=== PATIENT | male | born 1935 | race Caucasian/White ===

== ENCOUNTER 2022-04-04 09:39 | Inpatient (IN) | payer BC ==
[~2022-04-04] VITALS: Ht 167.6 cm; Wt 67.6 kg
[2022-04-04 09:43] VITALS: BP_SYST 116
--- NOTE | 2022-04-04 09:45 | NUR ---
Placed in room 02 . Placed on hall monitor, blood pressure machine and pulse oximeter. To gown for exam. Side rails up.
--- NOTE | 2022-04-04 09:55 | NUR ---
Pt brought by self, A&Ox4, pt presents to ER with syncope episode and tachycardia, per EMS new onset A-fib, skin pink and warm, respirations even and unlabored, cap refill <3, will cont to monitor.
--- NOTE | 2022-04-04 10:00 | NUR ---
Dr Smith evaluating patient at bedside
[2022-04-04 10:28] LABS: BASOPHILS # (AUTO) 0.1 K/uL (0.0-0.2); BASOPHILS % (AUTO) 0.3 % (0.0-2.0); EOSINOPHILS # (AUTO) 0.1 K/uL (0.0-0.4); EOSINOPHILS % (AUTO) 0.4 % (0.0-4.0); HEMATOCRIT 27.9 % (36-54); HEMOGLOBIN 9.4 g/dL (14.0-18.0); LYMPHOCYTES # (AUTO) 5.9 K/uL (1.0-5.5); MEAN CORPUSCULAR HEMOGLOBIN 32 pg (27-31); MEAN CORPUSCULAR HGB CONC 34 % (32-36); MEAN CORPUSCULAR VOLUME 95 fL (79.0-98.0); MONOCYTES # (AUTO) 0.7 K/uL (0.0-1.0); MONOCYTES % (AUTO) 3.9 % (1.7-9.3); NEUTROPHILS # (AUTO) 11.1 K/uL (1.8-7.7); NEUTROPHILS % (AUTO) 62.4 % (40.0-70.0); PLATELET COUNT (AUTO) 224 K/uL (130-430); RED BLOOD CELL COUNT(AUTO) 2.93 MIL/uL (4.2-6.2); RED CELL DISTRIBUTION WIDTH 13.8 % (9.0-15.0); WHITE BLOOD COUNT (AUTO) 17.7 K/uL (4.8-10.8)
--- NOTE | 2022-04-04 10:58 | NUR ---
Pt O2 is 83% at this time, pt placed on 2l NC, O2 96%
[2022-04-04 11:05] LABS: ALANINE AMINOTRANSFERASE 18 U/L (12-78); ASPARTATE AMINOTRANSFERASE 18 U/L (10-37); CALCIUM 8.1 mg/dL (8.4-11.0); CREATININE 1.89 mg/dL (0.55-1.30); GLUCOSE 182 mg/dL (70-99); TOTAL BILIRUBIN 0.4 mg/dL (0.0-1.0); UREA NITROGEN, BLOOD 98 mg/dL (8-21)
--- NOTE | 2022-04-04 11:12 | NUR ---
Pt placed in the comode at this time
[2022-04-04] MEDS ORDERED: cefTRIAXone 1 GM IVPB PREMIX 50 ML IV ONE (11:15)
[2022-04-04] MEDS ORDERED: PANTOPRAZOLE SODIUM 40 MG in NS 50 ML IV ONE (11:15)
[2022-04-04] MEDS ORDERED: NACL 0.9% 2,000 ML IV ONE (11:15)
[2022-04-04 11:19] LABS: ANION GAP 18 (5-15); CHLORIDE 106 mmol/L (98-107); POTASSIUM 5.4 mmol/L (3.5-5.1); SODIUM SERUM 142 mmol/L (136-145)
--- NOTE | 2022-04-04 11:30 | NUR ---
Black tarry stool noted at this time, notified.
--- NOTE | 2022-04-04 11:48 | NUR ---
urine sent to lab.
[2022-04-04] MEDS ORDERED: ALLO100T PO (11:56)
[2022-04-04] MEDS ORDERED: CELE400C PO (11:56)
[2022-04-04 12:03] LABS: BILIRUBIN,URINE NEGATIVE (NEGATIVE); BLOOD, URINE NEGATIVE (NEGATIVE); CLARITY/URINE CLEAR (CLEAR); COLOR,URINE YELLOW (YELLOW); GLUCOSE,URINE NEGATIVE (NEGATIVE); KETONES,URINE NEGATIVE (NEGATIVE); LEUKOCYTE ESTERASE ,URINE NEGATIVE (NEGATIVE); NITRITE, URINE NEGATIVE (NEGATIVE); PH,URINE 5.5 (5.0-8.0); PROTEIN URINE NEGATIVE (NEGATIVE); UROBILINOGEN,URINE 0.2 (0.2-1.0)
--- NOTE | 2022-04-04 12:17 | NUR ---
Medication reconciliation completed with information provided by patient. Any prior medication reconciliation on file was reviewed and corrected.
--- NOTE | 2022-04-04 14:03 | NUR ---
Admit bed requested Patient will be admitted to care of . Admitted to TELEMETRY unit. Diagnosis GI BLEED Inpatient (Yes or No) YES Observation (Yes or No) N Orientation concerns or request close to nursing station (Yes or No) N Covid Status NEG On vent or bipap NO Isolation requirements NO Needs a sitter N From Home (Yes or if No enter name of facility) HOME Requires Dialysis (Yes or No) N Med Rec Completed (Yes of No) YES
[2022-04-04 15:29] VITALS: BP_SYST 108
--- NOTE | 2022-04-04 15:30 | NUR ---
Patient will be admitted to care of Dr Kraus . Admitted to Tele unit. Will go to room 123A. Belongings list completed. Complete and up to date summary report printed. SBAR report to be given at bedside with opportunity for questions.
--- NOTE | 2022-04-04 15:35 | NUR ---
Initial Noted Patient admitted to Tele unit via gurney. No s/s of distress noted. Breathing is even and nonlabored. No SOB. Patient denies any pain at this time. Patient has been oriented to the room. Patient is AOX4. Report was given at bedside. Vital signs obtained, as documented. Safety precautions in place and call light within reach. AT this time patient is NPO. Family at bedside.
[2022-04-04 16:00] VITALS: BP_SYST 108
--- NOTE | 2022-04-04 16:43 | NUR ---
CONSULT: Tanvir GREENWOOD COVERING FOR DR WANG [phone] S/W: MACK
--- NOTE | 2022-04-04 18:55 | NUR ---
Closing Notes Patient is now on a clear liquid diet, no reds. Patient to be NPO at midnight. EGD for tomorrow, consents to be signed. WILL Endorse to incoming nurse. Patient is eating dinner. No s/s of distress noted. Denies any abdominal/ general pain. Patient's breathing is even and nonlabored. Safety precautions in place and call light within reach.
[2022-04-04] MEDS ORDERED: PANTOPRAZOLE SODIUM 40 MG/VIAL (PROTONIX) ONE (19:55)
[2022-04-04] MEDS: PANTOPRAZOLE SODIUM 40 MG/VIAL (PROTONIX) IVP SCH (19:58)
[2022-04-04 20:00] VITALS: BP_SYST 117
--- NOTE | 2022-04-04 21:23 | NUR ---
Patient in bed. No acute distress noted. Consent for the EGD signed and placed in the chart. Will continue to monitor.
[2022-04-04] MEDS ORDERED: traZODone HCL 50 MG TABLET (DESYREL) PO PRN (23:00)
[2022-04-05] VITALS: BP_SYST 119
--- NOTE | 2022-04-05 05:50 | NUR ---
Patient c/o discomfort to the chest, Vitals 104/72 66 97% 98.3. Patient states, " I didn't get any sleep." No distress noted. Will continue to monitor. Prn offered, patient refused.
[2022-04-05 06:48] LABS: BASOPHILS # (AUTO) 0.1 K/uL (0.0-0.2); BASOPHILS % (AUTO) 0.7 % (0.0-2.0); EOSINOPHILS # (AUTO) 0.1 K/uL (0.0-0.4); EOSINOPHILS % (AUTO) 1.5 % (0.0-4.0); HEMATOCRIT 23.5 % (36-54); HEMOGLOBIN 7.9 g/dL (14.0-18.0); LYMPHOCYTES # (AUTO) 2.2 K/uL (1.0-5.5); LYMPHOCYTES % (AUTO) 24.4 % (20.5-51.5); MEAN CORPUSCULAR HEMOGLOBIN 32 pg (27-31); MEAN CORPUSCULAR HGB CONC 34 % (32-36); MEAN CORPUSCULAR VOLUME 95 fL (79.0-98.0); MONOCYTES # (AUTO) 0.6 K/uL (0.0-1.0); MONOCYTES % (AUTO) 7.1 % (1.7-9.3); NEUTROPHILS # (AUTO) 5.9 K/uL (1.8-7.7); NEUTROPHILS % (AUTO) 66.3 % (40.0-70.0); PLATELET COUNT (AUTO) 159 K/uL (130-430); RED BLOOD CELL COUNT(AUTO) 2.48 MIL/uL (4.2-6.2); RED CELL DISTRIBUTION WIDTH 13.6 % (9.0-15.0); WHITE BLOOD COUNT (AUTO) 8.9 K/uL (4.8-10.8)
--- NOTE | 2022-04-05 07:30 | NUR ---
OPENING NOTE Patient in bed resting with eyes closed. No sign of distress or pain. Breathing is nonlabored and even, oxygen saturation 100% on 4L nasal cannula. Patient has been NPO since midnight last night. Updated patient on his plan of care for the day. All needs met at this time and safety checks made.
[2022-04-05 07:46] LABS: INR 1.1 (0.80-1.20)
[2022-04-05 08:00] VITALS: BP_SYST 132
[2022-04-05 08:32] LABS: ALANINE AMINOTRANSFERASE 11 U/L (12-78); ALBUMIN 2.7 g/dL (3.4-4.8); ANION GAP 11 (5-15); ASPARTATE AMINOTRANSFERASE 15 U/L (10-37); CALCIUM 8.2 mg/dL (8.4-11.0); CHLORIDE 114 mmol/L (98-107); CREATININE 1.54 mg/dL (0.55-1.30); GLUCOSE 110 mg/dL (70-99); POTASSIUM 3.9 mmol/L (3.5-5.1); SODIUM SERUM 144 mmol/L (136-145); TOTAL BILIRUBIN 0.4 mg/dL (0.0-1.0); UREA NITROGEN, BLOOD 74 mg/dL (8-21)
[2022-04-05] MEDS: PANTOPRAZOLE SODIUM 40 MG/VIAL (PROTONIX) IVP SCH ×2 (09:00→20:40)
--- NOTE | 2022-04-05 09:00 | NUR ---
PATIENT LEFT FOR EGD Patient left via wheelchair in stable condition.
[2022-04-05] MEDS: MIDAZOLAM HCL 5 MG/5 ML VIAL ONE ×2 (10:09→10:11)
[2022-04-05] MEDS: MEPERIDINE 100 MG INJ. 100 MG/ML VIAL ONE ×2 (10:09→10:11)
[2022-04-05] MEDS ORDERED: HYDROcodone/ACETAMIN 5-325 MG TAB (NORCO/ VICODIN) PO PRN (10:30)
[2022-04-05] MEDS ORDERED: LORazepam 2 MG/ML VIAL IVP PRN (10:30)
[2022-04-05] MEDS ORDERED: HYDROcodone/ACETAMIN 10-325 MG TAB PO PRN (10:30)
[2022-04-05] MEDS ORDERED: ACETAMINOPHEN 325 MG TABLET PO PRN ×2 (10:30→11:45)
[2022-04-05] MEDS ORDERED: ONDANSETRON HCL 4 MG/2 ML VIAL IVP PRN (10:30)
[2022-04-05] MEDS ORDERED: NALOXONE HCL 0.4 MG/ML AMP (NARCAN) IVP PRN ×2 (10:30)
--- NOTE | 2022-04-05 11:06 | NUR ---
CONSULT NEUROLOGY SYNCOPE CHAPITO BLANC SENT A TEXT TO DR ROSENBERG
--- NOTE | 2022-04-05 11:24 | NUR ---
CONSULT NEPHROLOGY JOSHUA DR LUIS [phone] S/W [facility] OFFICE
--- NOTE | 2022-04-05 11:26 | NUR ---
CONSULT CARDIOLOGY SYNCOPE DR MARKHAM [phone] S/W [facility] OFFICE
[2022-04-05 12:00] VITALS: BP_SYST 111
[2022-04-05 16:00] VITALS: BP_SYST 129
--- NOTE | 2022-04-05 19:20 | NUR ---
CLOSING NOTE Patient in bed resting, no sign of distress and denies pain. IV site is clean, dry, intact, and saline locked. Patient is on 2L NC, oxygen saturation 99%. Breathing is nonlabored and even. Patient denies flank pain. Patient tolerating his regular diet. All needs met at this time and safety checks made. Endorsed to campus security officer nurse.
[2022-04-05 20:00] VITALS: BP_SYST 121
--- NOTE | 2022-04-05 22:26 | NUR ---
Patient in bed. No acute distress noted. Prn given for anxiety. Will continue to monitor.
[2022-04-06 01:23] VITALS: BP_SYST 125
[2022-04-06 07:50] LABS: ALANINE AMINOTRANSFERASE 15 U/L (12-78); ALBUMIN 2.8 g/dL (3.4-4.8); ANION GAP 12 (5-15); ASPARTATE AMINOTRANSFERASE 14 U/L (10-37); CALCIUM 8.3 mg/dL (8.4-11.0); CHLORIDE 109 mmol/L (98-107); CREATININE 1.28 mg/dL (0.55-1.30); GLUCOSE 111 mg/dL (70-99); PHOSPHORUS 3.4 mg/dL (2.7-4.5); POTASSIUM 4.1 mmol/L (3.5-5.1); SODIUM SERUM 143 mmol/L (136-145); TOTAL BILIRUBIN 0.3 mg/dL (0.0-1.0); UREA NITROGEN, BLOOD 41 mg/dL (8-21)
[2022-04-06 07:53] LABS: BASOPHILS % (AUTO) 0.6 % (0.0-2.0); EOSINOPHILS # (AUTO) 0.2 K/uL (0.0-0.4); EOSINOPHILS % (AUTO) 2.6 % (0.0-4.0); HEMATOCRIT 22.3 % (36-54); HEMOGLOBIN 7.6 g/dL (14.0-18.0); LYMPHOCYTES # (AUTO) 1.8 K/uL (1.0-5.5); LYMPHOCYTES % (AUTO) 26.3 % (20.5-51.5); MEAN CORPUSCULAR HEMOGLOBIN 33 pg (27-31); MEAN CORPUSCULAR HGB CONC 34 % (32-36); MEAN CORPUSCULAR VOLUME 95 fL (79.0-98.0); MONOCYTES # (AUTO) 0.5 K/uL (0.0-1.0); MONOCYTES % (AUTO) 7.9 % (1.7-9.3); NEUTROPHILS # (AUTO) 4.2 K/uL (1.8-7.7); NEUTROPHILS % (AUTO) 62.6 % (40.0-70.0); PLATELET COUNT (AUTO) 162 K/uL (130-430); RED BLOOD CELL COUNT(AUTO) 2.35 MIL/uL (4.2-6.2); RED CELL DISTRIBUTION WIDTH 13.8 % (9.0-15.0)
[2022-04-06 08:00] VITALS: BP_SYST 127
--- NOTE | 2022-04-06 08:00 | NUR ---
OPENING N0TE Patient in bed resting, alert and oriented x4. No sign of distress and patient denies pain. IV site is clean, dry, intact, and saline locked. Patient is saturating 98% on room air, patient denies shortness of breath and his breaths are even and nonlabored. Patient updated on his plan of care, verbalized understanding. All needs met at this time and safety checks made.
[2022-04-06 08:17] LABS: WHITE BLOOD COUNT (AUTO) 6.7 K/uL (4.8-10.8)
[2022-04-06] MEDS ORDERED: ALLOPURINOL 100 MG TABLET (ZYLOPRIM) PO SCH (09:00)
[2022-04-06] MEDS: PANTOPRAZOLE SODIUM 40 MG/VIAL (PROTONIX) IVP SCH (10:19)
--- NOTE | 2022-04-06 10:23 | NUR ---
Pulse ox 98% room air at rest
[2022-04-06] MEDS ORDERED: FERR250T2 PO (11:36)
[2022-04-06] MEDS ORDERED: PRO40 PO (11:36)
[2022-04-06] MEDS ORDERED: TRAZ-250 PO (11:36)
[2022-04-06] MEDS ORDERED: DOCU-144 PO (11:36)
[2022-04-06 12:00] VITALS: BP_SYST 120
[2022-04-06 12:28] VITALS: BP_SYST 127
--- NOTE | 2022-04-06 14:00 | NUR ---
D/C Patient Patient given medication reconciliation form and D/C instructions. Exit Care provided. Patient verbalized understanding. MD discussed with patient the results and treatment provided. Ambulatory with steady gait for discharge to home via private auto with family. Patient in stable condition, ID band removed. IV catheter removed, intact and dressing applied, no active bleeding. Patient educated on pain management. All belongings sent with patient.
--- NOTE | 2022-04-07 12:21 | NUR ---
Discharge Planning: DCP faxed pt referral to [facility] [phone], [facility] [phone], [facility] [phone], [facility] [phone], [facility] [phone]. DCP to follow up Addendum: 04/07/22 at 1632 by Emliy Hemphill DP [facility] [phone]-Sonido esquivel, [facility] [phone], [facility] [phone]-accepting pending auth, [facility] [phone]-only doing shift care, [facility] [phone]-not taking PPO pts
== END 2022-04-06 14:05 | disposition home health service (06) | DRG 377 ==
LOC: SED 09:39 → STU 13:56
PROVIDERS: ADMIT Preventive Medicine Preventive Medicine/Occupational Environmental Medicine; ATTEND Preventive Medicine Preventive Medicine/Occupational Environmental Medicine
PROC: 0DB68ZX Excision of Stomach, Via Natural or Artificial Opening Endoscopic, Diagnostic (ICD-10-PCS; 2022-04-05)
PROC: 0DB98ZX Excision of Duodenum, Via Natural or Artificial Opening Endoscopic, Diagnostic (ICD-10-PCS; principal; 2022-04-05 10:00)
DX: K25.4 Chronic or unspecified gastric ulcer with hemorrhage (principal); N17.0 Acute kidney failure with tubular necrosis; R65.11 Systemic inflammatory response syndrome (SIRS) of non-infectious origin with acute organ dysfunction; E44.0 Moderate protein-calorie malnutrition; K29.80 Duodenitis without bleeding; I48.91 Unspecified atrial fibrillation; Z20.822 Contact with and (suspected) exposure to COVID-19; Z96.612 Presence of left artificial shoulder joint; Z96.611 Presence of right artificial shoulder joint; Z96.653 Presence of artificial knee joint, bilateral; D72.829 Elevated white blood cell count, unspecified; E88.09 Other disorders of plasma-protein metabolism, not elsewhere classified; E83.51 Hypocalcemia; K44.9 Diaphragmatic hernia without obstruction or gangrene; R79.89 Other specified abnormal findings of blood chemistry; K29.60 Other gastritis without bleeding; D50.0 Iron deficiency anemia secondary to blood loss (chronic); Z87.891 Personal history of nicotine dependence; Z79.899 Other long term (current) drug therapy; Z82.3 Family history of stroke; Z68.24 Body mass index [BMI] 24.0-24.9, adult
CPT/HCPCS: 36415; 43239; 71045; 76376; 76770; 80053; 81003; 83605; 83735; 83880; 84100; 84484; 85025; 85610-TC; 85730-TC; 87040; 87081; 88305; 88312; 88313; 93005; 93306; 93880; 96365; 96366; 96367; 99291; C9113; G0378; J0696; J2060; J2175; J2250

== ENCOUNTER 2023-02-24 13:39 | Inpatient (IN) | payer BC ==
[~2023-02-24] VITALS: Ht 162.6 cm; Wt 67.7 kg
[~2023-02-24 13:39] MED LIST: ALLO100T PO; DOCU-144 PO; FERR250T2 PO; PRO40 PO; TRAZ-250 PO
--- NOTE | 2023-02-24 13:42 | NUR ---
Placed in room 01 . Placed on claims examiner, blood pressure machine and pulse oximeter. To gown for exam. Side rails up.
[2023-02-24 13:44] VITALS: BP_SYST 119; PULSE 85; RESP 18; TEMP 98.3; O2SAT 98
--- NOTE | 2023-02-24 13:44 | NUR ---
Pt brought by ambulance, A&Ox4, pt presents to ER after nearsyncope episode while he was driving , pt states after feeling better he drove back home,pt denies pain skin pink and warm, cap refill <3, respirations even and unlabored,cap refill <3.
--- NOTE | 2023-02-24 14:48 | NUR ---
Labs sent at this time
[2023-02-24 15:03] LABS: BASOPHILS % (AUTO) 0.4 % (0.0-2.0); EOSINOPHILS # (AUTO) 0.2 K/uL (0.0-0.4); HEMATOCRIT 40.1 % (36-54); HEMOGLOBIN 13.2 g/dL (14.0-18.0); LYMPHOCYTES # (AUTO) 2.2 K/uL (1.0-5.5); LYMPHOCYTES % (AUTO) 22.2 % (20.5-51.5); MEAN CORPUSCULAR HEMOGLOBIN 32 pg (27-31); MEAN CORPUSCULAR HGB CONC 33 % (32-36); MEAN CORPUSCULAR VOLUME 97 fL (79.0-98.0); MONOCYTES # (AUTO) 0.8 K/uL (0.0-1.0); MONOCYTES % (AUTO) 8.3 % (1.7-9.3); NEUTROPHILS # (AUTO) 6.7 K/uL (1.8-7.7); NEUTROPHILS % (AUTO) 67.1 % (40.0-70.0); PLATELET COUNT (AUTO) 176 K/uL (130-430); RED BLOOD CELL COUNT(AUTO) 4.14 MIL/uL (4.2-6.2); RED CELL DISTRIBUTION WIDTH 14.5 % (9.0-15.0); WHITE BLOOD COUNT (AUTO) 9.9 K/uL (4.8-10.8)
[2023-02-24 15:19] LABS: ANION GAP 14 (5-15); CHLORIDE 104 mmol/L (98-107); CREATININE 1.82 mg/dL (0.55-1.30); GLUCOSE 104 mg/dL (70-99); UREA NITROGEN, BLOOD 26 mg/dL (8-21)
[2023-02-24 15:20] LABS: INR 1.1 (0.80-1.20)
[2023-02-24 15:26] LABS: ALANINE AMINOTRANSFERASE 19 U/L (12-78); ALBUMIN 3.6 g/dL (3.4-4.8); ASPARTATE AMINOTRANSFERASE 15 U/L (10-37); TOTAL BILIRUBIN 0.8 mg/dL (0.0-1.0)
[2023-02-24] MEDS ORDERED: ASPI-862 PO (16:02)
[2023-02-24] MEDS ORDERED: ASPIRIN 325 MG TABLET PO ONE (16:15)
--- NOTE | 2023-02-24 16:20 | NUR ---
Dinner tray ordered for patient
--- NOTE | 2023-02-24 16:27 | NUR ---
Ordered low sodium meal.
--- NOTE | 2023-02-24 16:53 | NUR ---
[facility] Contact: Marino Codyieri Do not call his at home because she has severe dementia.
--- NOTE | 2023-02-24 17:10 | NUR ---
Pt A&Ox4, VSS, respirations even and unlabored, cap refill <3,
--- NOTE | 2023-02-24 17:31 | NUR ---
Dinner tray given to patient, well tolerated
--- NOTE | 2023-02-24 17:34 | NUR ---
Placed admission request call to Dr. Lundberg ([facility]) Waiting for call back.
--- NOTE | 2023-02-24 17:47 | NUR ---
Pgd. chi at the HCP/[facility] exchange.
[2023-02-24] MEDS ORDERED: MORPHINE 2 MG/ML INJ. SYRINGE IVP PRN (18:00)
[2023-02-24] MEDS ORDERED: HYDROcodone/ACETAMIN 10-325 MG TAB PO PRN ×2 (18:00→18:30)
[2023-02-24] MEDS ORDERED: ASPIRIN 81 MG TAB.CHEW PO SCH (18:15)
--- NOTE | 2023-02-24 18:39 | NUR ---
Pt A&Ox4, VSS, respirations even and unlabored.
--- NOTE | 2023-02-24 18:50 | NUR ---
Dr Franklin evaluating patient at bedside
--- NOTE | 2023-02-24 19:05 | NUR ---
Report given to Medardo TURNER
[2023-02-24 19:07] LABS: BILIRUBIN,URINE NEGATIVE (NEGATIVE); CLARITY/URINE CLEAR (CLEAR); COLOR,URINE YELLOW (YELLOW); GLUCOSE,URINE NEGATIVE (NEGATIVE); KETONES,URINE 1+ (NEGATIVE); LEUKOCYTE ESTERASE ,URINE NEGATIVE (NEGATIVE); NITRITE, URINE NEGATIVE (NEGATIVE); PH,URINE 5.5 (5.0-8.0); PROTEIN URINE 1+ (NEGATIVE); UROBILINOGEN,URINE 0.2 (0.2-1.0)
[2023-02-24 19:08] LABS: BLOOD, URINE TRACE (NEGATIVE)
--- NOTE | 2023-02-24 19:09 | NUR ---
Admit bed requested Patient will be admitted to care of . Admitted to TELEMETRY unit. Diagnosis SYNCOPE Inpatient (Yes or No) Y Observation (Yes or No) N Orientation concerns or request close to nursing station (Yes or No) N Covid Status On vent or bipap N Isolation requirements N Needs a sitter N From Home (Yes or if No enter name of facility) Y Requires Dialysis (Yes or No) N Med Rec Completed (Yes of No) Y
--- NOTE | 2023-02-24 19:09 | NUR ---
DR DONAHUE CLARIFIED NO NEURO CONSULT AT THIS TIME
[2023-02-24 19:12] LABS: BACTERIA,URINE FEW /HPF (None Seen); MUCUS,URINE None Seen /LPF (None Seen); RBC,URINE 0-3 /HPF (0-3); WBC,URINE 0-3 /HPF (0-3)
--- NOTE | 2023-02-24 19:13 | NUR ---
Medication reconciliation completed with information provided by PT. Any prior medication reconciliation on file was reviewed and corrected.
[2023-02-24 19:16] LABS: BARBITURATE, URINE NEGATIVE (NEG <=200); BENZODIAZEPINE, URINE NEGATIVE (NEG <=150); CANNABINOID, URINE NEGATIVE (NEG <=50); COCAINE, URINE NEGATIVE (NEG <=150); METHAMPHETAMINES SCREEN,URINE NEGATIVE (NEG <=500); OPIATE, URINE NEGATIVE (NEG <=100); PHENCYCLIDINE SCREEN,URINE NEGATIVE (NEG <=25); UR TRICYCLIC ANTIDEPRESSANTS NEGATIVE (NEG <=300); URINE AMPHETAMINE NEGATIVE (NEG <=500); URINE METHADONE NEGATIVE (NEG <=200); URINE OXYCODONE SCREEN NEGATIVE (NEG <=100); URINE PROPOXYPHENE SCREEN NEGATIVE (NEG <=300)
--- NOTE | 2023-02-24 21:12 | NUR ---
Patient will be admitted to care of NOMAN TURNER. Admitted to TELE unit. Will go to room 122B. Belongings list completed. Complete and up to date summary report printed. SBAR report to be given at bedside with opportunity for questions.
--- NOTE | 2023-02-24 21:20 | NUR ---
Admission Note Received patient from ER with diagnosis of SYNCOPE. Initial Plan of Care discussed-patient verbalized understanding. Oriented to room, call light, pain management and safety.
[2023-02-24 21:23] VITALS: BP_SYST 156; PULSE 87; RESP 18; TEMP 97.5
[2023-02-24] MEDS: FOLIC ACID 1 MG TABLET PO SCH (21:55)
[2023-02-24] MEDS: NACL 0.9% 1,000 ML IV SCH (21:55)
[2023-02-24] MEDS: THIAMINE HCL 100 MG TABLET GT SCH (21:55)
[2023-02-24] MEDS: MULTIVITAMINS TAB 1 TABLET PO SCH (21:55)
[2023-02-25] VITALS (7 sets, daily range): BP systolic 132–157; PULSE 75–91; RESP 16–18; TEMP 97.4–99.2; O2SAT 95–99
--- NOTE | 2023-02-25 01:00 | NUR ---
ROUNDS PATIENT IN BED, RESTING. NO SIGNS OF DISCOMFORT. ALL NEEDS MET. WILL MONITOR.
[2023-02-25 05:58] LABS: BASOPHILS # (AUTO) 0.1 K/uL (0.0-0.2); BASOPHILS % (AUTO) 0.8 % (0.0-2.0); EOSINOPHILS # (AUTO) 0.5 K/uL (0.0-0.4); EOSINOPHILS % (AUTO) 6.5 % (0.0-4.0); HEMATOCRIT 38.3 % (36-54); HEMOGLOBIN 12.7 g/dL (14.0-18.0); LYMPHOCYTES # (AUTO) 2.5 K/uL (1.0-5.5); LYMPHOCYTES % (AUTO) 35.1 % (20.5-51.5); MEAN CORPUSCULAR HEMOGLOBIN 32 pg (27-31); MEAN CORPUSCULAR HGB CONC 33 % (32-36); MEAN CORPUSCULAR VOLUME 97 fL (79.0-98.0); MONOCYTES # (AUTO) 0.7 K/uL (0.0-1.0); MONOCYTES % (AUTO) 9.3 % (1.7-9.3); NEUTROPHILS # (AUTO) 3.5 K/uL (1.8-7.7); NEUTROPHILS % (AUTO) 48.3 % (40.0-70.0); PLATELET COUNT (AUTO) 165 K/uL (130-430); RED BLOOD CELL COUNT(AUTO) 3.95 MIL/uL (4.2-6.2); RED CELL DISTRIBUTION WIDTH 14.1 % (9.0-15.0); WHITE BLOOD COUNT (AUTO) 7.3 K/uL (4.8-10.8)
[2023-02-25 06:16] LABS: ANION GAP 13 (5-15); CHLORIDE 106 mmol/L (98-107); CREATININE 1.67 mg/dL (0.55-1.30); GLUCOSE 98 mg/dL (70-99); UREA NITROGEN, BLOOD 29 mg/dL (8-21)
[2023-02-25 06:17] LABS: ALANINE AMINOTRANSFERASE 17 U/L (12-78); ALBUMIN 3.3 g/dL (3.4-4.8); ASPARTATE AMINOTRANSFERASE 14 U/L (10-37); TOTAL BILIRUBIN 0.7 mg/dL (0.0-1.0)
--- NOTE | 2023-02-25 06:35 | NUR ---
CLOSING NOTE PATIENT IN BED, RESTING AT THIS TIME. NO S/S OF ACUTE DISTRESS NOTED. BREATHING EVEN AND UNLABORED. HOB RAISED. IV SITE PATENT. ALL NEEDS MET THROUGHOUT SHIFT. FALL,SAFETY PRECAUTIONS MAINTAINED THROUGHOUT SHIFT. WILL CONTINUE TO MONITOR UNTIL PATIENT CARE IS ENDORSED TO ONCOMING DAYSHIFT NURSE.
[2023-02-25 06:36] LABS: INR 1.1 (0.80-1.20); PROTHROMBIN TIME 11.3 SECS (9.5-12.5)
--- NOTE | 2023-02-25 07:30 | NUR ---
OPENING NOTES PATIENT IS RESTING, ALERT AND ORIENTED. BREATHING UNLABORED ON RA. NO PAIN, NO DISTRESS NOTED. SAFETY PRECAUTIONS IN PLACE. BED ALARM WITHIN REACH. BED LOCKED IN LOWEST POSITION. WILL CONTINUE WITH PLAN OF CARE.
[2023-02-25] MEDS ORDERED: ASPIRIN 81 MG TAB.CHEW PO SCH (09:00)
--- NOTE | 2023-02-25 09:09 | NUR ---
CONSULTATION PAGED/CALLED Reason for Consultation: Syncope Person Who was Notified: Dr Sewell Consulting Physician: Dr Sewell Power Checker Specialty: Neuro Ordering Physician: Eleazar Carter
[2023-02-25] MEDS: NACL 0.9% 1,000 ML IV SCH (10:03)
[2023-02-25] MEDS: FOLIC ACID 1 MG TABLET PO SCH (10:21)
[2023-02-25] MEDS: MULTIVITAMINS TAB 1 TABLET PO SCH (10:21)
[2023-02-25] MEDS: THIAMINE HCL 100 MG TABLET GT SCH (10:21)
--- NOTE | 2023-02-25 13:54 | NUR ---
DR ROSENBERG VISITED WITH THE PATIENT. DR ROSENBERG SAID THE PATIENT IS CLEARED TO BE DISCHARGED AND FOR THE PATIENT TO FOLLOW UP WITH HIM IN 2 WEEKS OUTPATIENT.
--- NOTE | 2023-02-25 15:32 | NUR ---
CONSULTATION PAGED/CALLED Reason for Consultation: Read 2D Echo/ DC Clearance Person Who was Notified: Jacqueline Consulting Physician: Dr Corona Cutter Grind Tool Technician Specialty: Cardiac Ordering Physician: Eleazar Regan
--- NOTE | 2023-02-25 15:52 | NUR ---
SPOKE TO DR. MARKHAM OVER THE PHONE. GAVE REPORT ON PATIENT. DR. MARKHAM CLEARED PATIENT FOR DISCHARGE.
--- NOTE | 2023-02-25 17:09 | NUR ---
PATIENT CLEARED BY DR ROSENBERG AND DR MARKHAM FOR DISCHARGE. PATIENT IS TO FOLLOW UP WITH DR ROSENBERG IN 2 WEEKS AND PRIMARY CARE DOCTOR IN 1 WEEK. PATIENT TAKEN HOME BY PRIVATE AUTO WITH BROTHER IN LAW MARIA ESTHER LUNA. IV REMOVED NO ACTIVE BLEEDING. ID BAND REMOVED AND DISCHARGE INSTRUCTIONS GIVEN.
== END 2023-02-25 17:05 | disposition home or self-care (01) | DRG 312 ==
LOC: SED 13:39 → STU 17:59
PROVIDERS: ADMIT Family Medicine; ATTEND Family Medicine
DX: R55 Syncope and collapse (principal); N17.0 Acute kidney failure with tubular necrosis; F10.10 Alcohol abuse, uncomplicated; Y90.9 Presence of alcohol in blood, level not specified; M10.9 Gout, unspecified; G47.00 Insomnia, unspecified; Z79.82 Long term (current) use of aspirin; Z79.899 Other long term (current) drug therapy; Z86.73 Personal history of transient ischemic attack (TIA), and cerebral infarction without residual deficits
CPT/HCPCS: 36415; 70450-TC; 71045; 76376; 80053; 80307; 81000; 83605; 83880; 84484; 85025; 85610-TC; 85730-TC; 93005; 93306; 93880; 99285; G0378; G0482; J2270; J7030

== ENCOUNTER 2023-05-15 13:04 | Emergency (ER) | payer BC ==
[~2023-05-15] VITALS: Ht 160 cm; Wt 58.5 kg
[2023-05-15 13:18] VITALS: BP_SYST 101; PULSE 104; RESP 20; TEMP 98.3; O2SAT 96
[2023-05-15 15:35] LABS: BASOPHILS % (AUTO) 0.1 % (0.0-2.0); EOSINOPHILS # (AUTO) 0.3 K/uL (0.0-0.4); EOSINOPHILS % (AUTO) 2.6 % (0.0-4.0); HEMATOCRIT 37.4 % (36-54); HEMOGLOBIN 12.2 g/dL (14.0-18.0); LYMPHOCYTES # (AUTO) 2.2 K/uL (1.0-5.5); LYMPHOCYTES % (AUTO) 19.9 % (20.5-51.5); MEAN CORPUSCULAR HEMOGLOBIN 32 pg (27-31); MEAN CORPUSCULAR HGB CONC 33 % (32-36); MEAN CORPUSCULAR VOLUME 99 fL (79.0-98.0); MONOCYTES # (AUTO) 1.1 K/uL (0.0-1.0); MONOCYTES % (AUTO) 9.4 % (1.7-9.3); NEUTROPHILS # (AUTO) 7.6 K/uL (1.8-7.7); PLATELET COUNT (AUTO) 213 K/uL (130-430); RED BLOOD CELL COUNT(AUTO) 3.77 MIL/uL (4.2-6.2); RED CELL DISTRIBUTION WIDTH 14.4 % (9.0-15.0); WHITE BLOOD COUNT (AUTO) 11.2 K/uL (4.8-10.8)
[2023-05-15 15:56] LABS: ANION GAP 16 (5-15); CALCIUM 8.7 mg/dL (8.4-11.0); CARBON DIOXIDE 21 mmol/L (23-29); CHLORIDE 103 mmol/L (98-107); CREATININE 1.74 mg/dL (0.55-1.30); GLUCOSE 103 mg/dL (74-106); POTASSIUM 4.7 mmol/L (3.5-5.1); SODIUM SERUM 140 mmol/L (136-145); UREA NITROGEN, BLOOD 20 mg/dL (8-21)
[2023-05-15] MEDS ORDERED: CLIN-22 PO ×3 (16:22→17:05)
[2023-05-15 16:33] LABS: ALANINE AMINOTRANSFERASE 13 U/L (12-78); ALBUMIN 3.6 g/dL (3.4-4.8); ASPARTATE AMINOTRANSFERASE 14 U/L (10-37); TOTAL BILIRUBIN 0.8 mg/dL (0.0-1.0); TOTAL PROTEIN, SERUM 6.9 g/dL (6.4-8.3)
[2023-05-15 16:54] VITALS: BP_SYST 143; PULSE 90; RESP 16; TEMP 97.6; O2SAT 96
== END 2023-05-15 16:54 | disposition home or self-care (01) ==
LOC: SED 13:04
DX: L03.113 Cellulitis of right upper limb (principal); M79.89 Other specified soft tissue disorders; Z79.899 Other long term (current) drug therapy
CPT/HCPCS: 36415; 80053; 83605; 85025; 93971; 99284

== ENCOUNTER 2023-07-29 19:41 | Emergency (ER) | payer BC ==
[~2023-07-29] VITALS: Ht 167.6 cm; Wt 86.2 kg
[~2023-07-29 19:41] MED LIST changes: -ALLO100T PO; +CEPH250C PO; +CLIN-22 PO; -DOCU-144 PO; +DOXY100C5 PO; -FERR250T2 PO; -PRO40 PO; -TRAZ-250 PO
[2023-07-29 19:43] VITALS: BP_SYST 104; PULSE 77; RESP 20; TEMP 97.7; O2SAT 96
[2023-07-29] MEDS ORDERED: ACETAMINOPHEN 500 MG TABLET PO ONE (20:00)
[2023-07-29] MEDS ORDERED: KETOROLAC TROMETHAMINE 30 MG VIAL IM ONE (20:45)
[2023-07-29] MEDS ORDERED: IBUP-1969 PO (21:24)
[2023-07-29] MEDS ORDERED: DICL20GE TP (21:24)
[2023-07-29 21:37] VITALS: BP_SYST 104; PULSE 77; RESP 20; TEMP 97.7; O2SAT 96
== END 2023-07-30 08:11 | disposition home or self-care (01) ==
LOC: SED 19:41
DX: S22.32XA Fracture of one rib, left side, initial encounter for closed fracture (principal); S09.90XA Unspecified injury of head, initial encounter; Z79.899 Other long term (current) drug therapy; W01.0XXA Fall on same level from slipping, tripping and stumbling without subsequent striking against object, initial encounter; Y93.89 Activity, other specified; Y92.89 Other specified places as the place of occurrence of the external cause; Y99.8 Other external cause status
CPT/HCPCS: 99285; 70450; 71045; 93005; 73030; 73060; 73564; 76376; 96372; J1885

== ENCOUNTER 2023-08-19 11:03 | Inpatient (IN) | payer BC ==
[~2023-08-19] VITALS: Ht 160 cm; Wt 59.0 kg
[~2023-08-19 11:03] MED LIST changes: +DICL20GE TP; +IBUP-1969 PO
[2023-08-19 11:10] VITALS: BP_SYST 145; PULSE 89; RESP 18; TEMP 97.1; O2SAT 98
[2023-08-19] MEDS ORDERED: LIDOCAINE 1% 10 MG/ML, 20 ML MDV INJ ONE (11:15)
[2023-08-19] MEDS ORDERED: BACITRACIN 1 GM OINT TP ONE (11:15)
[2023-08-19] MEDS ORDERED: DIPHTH,PERTUSS(ACELL),TET VAC 0.5 ML VIAL (Tdap) I.M. ONE (11:15)
[2023-08-19] MEDS ORDERED: HYDROcodone/ACETAMIN 5-325 MG TAB (NORCO/ VICODIN) PO ONE (12:00)
[2023-08-19 12:02] LABS: BASOPHILS % (AUTO) 0.2 % (0.0-2.0); EOSINOPHILS # (AUTO) 0.8 K/uL (0.0-0.4); EOSINOPHILS % (AUTO) 4.4 % (0.0-4.0); HEMATOCRIT 31.7 % (36-54); HEMOGLOBIN 9.9 g/dL (14.0-18.0); LYMPHOCYTES # (AUTO) 5.9 K/uL (1.0-5.5); LYMPHOCYTES % (AUTO) 31.9 % (20.5-51.5); MEAN CORPUSCULAR HEMOGLOBIN 30 pg (27-31); MEAN CORPUSCULAR HGB CONC 31 % (32-36); MEAN CORPUSCULAR VOLUME 96 fL (79.0-98.0); MONOCYTES # (AUTO) 0.6 K/uL (0.0-1.0); MONOCYTES % (AUTO) 3.2 % (1.7-9.3); NEUTROPHILS # (AUTO) 11.1 K/uL (1.8-7.7); NEUTROPHILS % (AUTO) 60.3 % (40.0-70.0); PLATELET COUNT (AUTO) 284 K/uL (130-430); RED BLOOD CELL COUNT(AUTO) 3.29 MIL/uL (4.2-6.2); RED CELL DISTRIBUTION WIDTH 14.5 % (9.0-15.0); WHITE BLOOD COUNT (AUTO) 18.5 K/uL (4.8-10.8)
[2023-08-19 12:19] LABS: INR 1.1 (0.80-1.20)
[2023-08-19 12:27] LABS: ANION GAP 23 (5-15); CARBON DIOXIDE 17 mmol/L (23-29); CHLORIDE 106 mmol/L (98-107); CREATININE 2.75 mg/dL (0.55-1.30); GLUCOSE 123 mg/dL (74-106); POTASSIUM 4.7 mmol/L (3.5-5.1); SODIUM SERUM 146 mmol/L (136-145); UREA NITROGEN, BLOOD 57 mg/dL (8-21)
[2023-08-19 12:32] LABS: ALANINE AMINOTRANSFERASE 18 U/L (12-78); ALBUMIN 2.7 g/dL (3.4-4.8); ASPARTATE AMINOTRANSFERASE 15 U/L (10-37); BILIRUBIN,DIRECT 0.2 mg/dL (0.0-0.3); CREATINE KINASE, TOTAL 44 U/L (39-308); TOTAL BILIRUBIN 0.4 mg/dL (0.0-1.0); TOTAL PROTEIN, SERUM 5.9 g/dL (6.4-8.3)
[2023-08-19] MEDS: D5/0.45 NS 1,000 ML IV SCH ×2 (14:21→23:28)
[2023-08-19 16:30] VITALS: BP_SYST 124; PULSE 97; RESP 16; TEMP 97.9; O2SAT 99
[2023-08-19 16:51] VITALS: BP_SYST 124; PULSE 97; RESP 16; TEMP 97.9; O2SAT 99
[2023-08-19 20:00] VITALS: BP_SYST 126; PULSE 90; RESP 20; TEMP 97.8; O2SAT 98
[2023-08-19] MEDS ORDERED: HYDROcodone/ACETAMIN 10-325 MG TAB PO PRN (20:15)
[2023-08-19] MEDS ORDERED: ACETAMINOPHEN 500 MG TABLET PO PRN (20:15)
[2023-08-19] MEDS: HYDROcodone/ACETAMIN 5-325 MG TAB (NORCO/ VICODIN) PO PRN (21:24)
[2023-08-20 00:27] VITALS: BP_SYST 131; PULSE 96; RESP 20; TEMP 97.7; O2SAT 95
[2023-08-20 00:40] VITALS: O2SAT 98
[2023-08-20] MEDS: DIPHENHYDRAMINE HCL 50 MG CAPSULE PO PRN ×2 (01:38→20:38)
[2023-08-20] MEDS ORDERED: DIPHENHYDRAMINE HCL 50 MG CAPSULE ONE (01:39)
[2023-08-20 02:27] VITALS: BP_SYST 126; PULSE 90; RESP 20; TEMP 97.8; O2SAT 98
[2023-08-20] MEDS: HYDROcodone/ACETAMIN 5-325 MG TAB (NORCO/ VICODIN) PO PRN (03:22)
[2023-08-20 08:00] VITALS: BP_SYST 130; PULSE 95; RESP 16; TEMP 97.1; O2SAT 97
[2023-08-20] MEDS ORDERED: ACETAMINOPHEN 325 MG TABLET PO PRN (08:45)
[2023-08-20] MEDS: HEPARIN SODIUM,PORCINE 5,000 UNITS/ML VIAL SUBCUT SCH ×2 (09:00→20:39)
[2023-08-20] MEDS: PANTOPRAZOLE SODIUM 40 MG TAB PO SCH (09:00)
[2023-08-20] MEDS: D5/0.45 NS 1,000 ML IV SCH ×2 (09:09→17:09)
[2023-08-20] MEDS ORDERED: EPOETIN ALFA-EPBX 4,000 UNITS/ML VIAL SUBCUT ONE (10:00)
[2023-08-20] MEDS: cefTRIAXone 1 GM IVPB PREMIX 50 ML IV SCH (11:07)
[2023-08-20 11:11] LABS: ANION GAP 20 (5-15); CALCIUM 8.5 mg/dL (8.4-11.0); CARBON DIOXIDE 12 mmol/L (23-29); CHLORIDE 108 mmol/L (98-107); CREATININE 2.54 mg/dL (0.55-1.30); GLUCOSE 118 mg/dL (74-106); POTASSIUM 4.2 mmol/L (3.5-5.1); SODIUM SERUM 140 mmol/L (136-145); UREA NITROGEN, BLOOD 76 mg/dL (8-21)
[2023-08-20 11:16] LABS: ALANINE AMINOTRANSFERASE 14 U/L (12-78); ALBUMIN 2.2 g/dL (3.4-4.8); ASPARTATE AMINOTRANSFERASE 14 U/L (10-37); TOTAL BILIRUBIN 0.3 mg/dL (0.0-1.0); TOTAL PROTEIN, SERUM 5.5 g/dL (6.4-8.3)
[2023-08-20 11:24] LABS: BASOPHILS # (AUTO) 0.1 K/uL (0.0-0.2); BASOPHILS % (AUTO) 0.5 % (0.0-2.0); EOSINOPHILS # (AUTO) 0.9 K/uL (0.0-0.4); EOSINOPHILS % (AUTO) 5.1 % (0.0-4.0); HEMATOCRIT 28.2 % (36-54); HEMOGLOBIN 8.8 g/dL (14.0-18.0); LYMPHOCYTES # (AUTO) 5.6 K/uL (1.0-5.5); LYMPHOCYTES % (AUTO) 32.3 % (20.5-51.5); MEAN CORPUSCULAR HEMOGLOBIN 30 pg (27-31); MEAN CORPUSCULAR HGB CONC 31 % (32-36); MEAN CORPUSCULAR VOLUME 98 fL (79.0-98.0); MONOCYTES # (AUTO) 0.7 K/uL (0.0-1.0); MONOCYTES % (AUTO) 4.4 % (1.7-9.3); NEUTROPHILS # (AUTO) 9.9 K/uL (1.8-7.7); NEUTROPHILS % (AUTO) 57.7 % (40.0-70.0); RED BLOOD CELL COUNT(AUTO) 2.89 MIL/uL (4.2-6.2); RED CELL DISTRIBUTION WIDTH 14.6 % (9.0-15.0)
[2023-08-20 11:26] LABS: WHITE BLOOD COUNT (AUTO) 17.2 K/uL (4.8-10.8)
[2023-08-20] MEDS ORDERED: ONDANSETRON HCL 4 MG/2 ML VIAL IVP PRN (12:00)
[2023-08-20 12:02] LABS: BILIRUBIN,URINE NEGATIVE (NEGATIVE); CLARITY/URINE CLEAR (CLEAR); COLOR,URINE YELLOW (YELLOW); GLUCOSE,URINE NEGATIVE (NEGATIVE); KETONES,URINE NEGATIVE (NEGATIVE); LEUKOCYTE ESTERASE ,URINE NEGATIVE (NEGATIVE); NITRITE, URINE NEGATIVE (NEGATIVE); PROTEIN URINE NEGATIVE (NEGATIVE); UROBILINOGEN,URINE 0.2 (0.2-1.0)
[2023-08-20 12:05] LABS: PLATELET COUNT (AUTO) 246 K/uL (130-430)
[2023-08-20 12:10] LABS: BLOOD, URINE TRACE (NEGATIVE)
[2023-08-20 12:12] LABS: RBC,URINE 0-3 /HPF (0-3); WBC,URINE 0-3 /HPF (0-3)
[2023-08-20 12:13] LABS: BACTERIA,URINE FEW /HPF (None Seen)
[2023-08-20] MEDS ORDERED: cefTRIAXone 1 GM IVPB PREMIX 50 ML IV SCH (13:00)
[2023-08-20 20:00] VITALS: BP_SYST 126; PULSE 83; RESP 18; TEMP 98.4; O2SAT 99
[2023-08-20 22:16] VITALS: O2SAT 99
[2023-08-20] MEDS: traZODone HCL 50 MG TABLET (DESYREL) PO PRN (22:40)
[2023-08-21 02:03] VITALS: BP_SYST 126; PULSE 83; RESP 18; TEMP 98.4; O2SAT 99
[2023-08-21] MEDS: D5/0.45 NS 1,000 ML IV SCH ×2 (02:27→15:15)
[2023-08-21 06:29] LABS: ALANINE AMINOTRANSFERASE 11 U/L (12-78); ALBUMIN 1.9 g/dL (3.4-4.8); ANION GAP 20 (5-15); ASPARTATE AMINOTRANSFERASE 14 U/L (10-37); CALCIUM 7.4 mg/dL (8.4-11.0); CARBON DIOXIDE 14 mmol/L (23-29); CHLORIDE 107 mmol/L (98-107); CREATININE 2.38 mg/dL (0.55-1.30); GLUCOSE 345 mg/dL (74-106); PHOSPHORUS 3.3 mg/dL (2.7-4.5); POTASSIUM 3.2 mmol/L (3.5-5.1); SODIUM SERUM 141 mmol/L (136-145); TOTAL BILIRUBIN 0.1 mg/dL (0.0-1.0); TOTAL PROTEIN, SERUM 4.4 g/dL (6.4-8.3); UREA NITROGEN, BLOOD 68 mg/dL (8-21)
[2023-08-21 08:00] VITALS: BP_SYST 91; PULSE 102; RESP 20; TEMP 98.6; O2SAT 98
[2023-08-21] MEDS: HEPARIN SODIUM,PORCINE 5,000 UNITS/ML VIAL SUBCUT SCH (09:00)
[2023-08-21 09:05] LABS: BASOPHILS # (AUTO) 0.1 K/uL (0.0-0.2); BASOPHILS % (AUTO) 0.5 % (0.0-2.0); EOSINOPHILS # (AUTO) 1.2 K/uL (0.0-0.4); EOSINOPHILS % (AUTO) 8.8 % (0.0-4.0); HEMATOCRIT 23.9 % (36-54); HEMOGLOBIN 7.3 g/dL (14.0-18.0); LYMPHOCYTES # (AUTO) 3.3 K/uL (1.0-5.5); LYMPHOCYTES % (AUTO) 23.9 % (20.5-51.5); MEAN CORPUSCULAR HEMOGLOBIN 30 pg (27-31); MEAN CORPUSCULAR HGB CONC 31 % (32-36); MEAN CORPUSCULAR VOLUME 98 fL (79.0-98.0); MONOCYTES # (AUTO) 0.9 K/uL (0.0-1.0); MONOCYTES % (AUTO) 6.3 % (1.7-9.3); NEUTROPHILS # (AUTO) 8.5 K/uL (1.8-7.7); NEUTROPHILS % (AUTO) 60.5 % (40.0-70.0); PLATELET COUNT (AUTO) 271 K/uL (130-430); RED BLOOD CELL COUNT(AUTO) 2.45 MIL/uL (4.2-6.2); RED CELL DISTRIBUTION WIDTH 14.5 % (9.0-15.0)
[2023-08-21] MEDS: PANTOPRAZOLE SODIUM 40 MG TAB PO SCH (09:16)
[2023-08-21] MEDS: cefTRIAXone 1 GM IVPB PREMIX 50 ML IV SCH (10:04)
[2023-08-21 11:07] VITALS: BP_SYST 95; PULSE 105; RESP 16; TEMP 97.7; O2SAT 96
[2023-08-21] MEDS ORDERED: ALBUMIN HUMAN 25% 200 ML IV ONE (13:00)
[2023-08-21] MEDS ORDERED: NS 250 ML IV ONE (13:30)
[2023-08-21] MEDS ORDERED: POTASSIUM CHLORIDE 40 MEQ in NS 250 ML IV ONE (14:00)
[2023-08-21 15:27] VITALS: BP_SYST 101; PULSE 66; RESP 16; TEMP 96.9; O2SAT 98
[2023-08-21] MEDS ORDERED: ALBUMIN HUMAN 25% 50 ML IV SCH (16:00)
[2023-08-21] MEDS: ALBUMIN HUMAN 25% 50 ML IV SCH (18:16)
[2023-08-21 20:00] VITALS: BP_SYST 115; PULSE 95; RESP 18; TEMP 96.8; O2SAT 95; O2SAT 97
[2023-08-21] MEDS: traZODone HCL 50 MG TABLET (DESYREL) PO PRN (21:05)
[2023-08-21] MEDS: DIPHENHYDRAMINE HCL 50 MG CAPSULE PO PRN (21:05)
[2023-08-21] MEDS: HYDROcodone/ACETAMIN 5-325 MG TAB (NORCO/ VICODIN) PO PRN (21:06)
[2023-08-21] MEDS: LORazepam 2 MG/ML VIAL IVP PRN (22:23)
[2023-08-22] VITALS (8 sets, daily range): BP systolic 89–144; PULSE 75–104; RESP 16–22; TEMP 96.1–98; O2SAT 91–99
[2023-08-22] MEDS: ALBUMIN HUMAN 25% 50 ML IV SCH ×2 (00:19→06:05)
[2023-08-22] MEDS: D5/0.45 NS 1,000 ML IV SCH ×3 (01:15→21:38)
[2023-08-22 05:31] LABS: BASOPHILS % (AUTO) 0.3 % (0.0-2.0); EOSINOPHILS # (AUTO) 0.5 K/uL (0.0-0.4); EOSINOPHILS % (AUTO) 7.8 % (0.0-4.0); LYMPHOCYTES # (AUTO) 1.5 K/uL (1.0-5.5); LYMPHOCYTES % (AUTO) 22.1 % (20.5-51.5); MEAN CORPUSCULAR HEMOGLOBIN 31 pg (27-31); MEAN CORPUSCULAR HGB CONC 32 % (32-36); MEAN CORPUSCULAR VOLUME 97 fL (79.0-98.0); MONOCYTES # (AUTO) 0.4 K/uL (0.0-1.0); MONOCYTES % (AUTO) 6.2 % (1.7-9.3); NEUTROPHILS # (AUTO) 4.2 K/uL (1.8-7.7); NEUTROPHILS % (AUTO) 63.6 % (40.0-70.0); PLATELET COUNT (AUTO) 174 K/uL (130-430); WHITE BLOOD COUNT (AUTO) 6.6 K/uL (4.8-10.8)
[2023-08-22 05:54] LABS: ANION GAP 17 (5-15); CALCIUM 8.2 mg/dL (8.4-11.0); CARBON DIOXIDE 16 mmol/L (23-29); CHLORIDE 114 mmol/L (98-107); CREATININE 2.07 mg/dL (0.55-1.30); GLUCOSE 141 mg/dL (74-106); POTASSIUM 3.8 mmol/L (3.5-5.1); SODIUM SERUM 147 mmol/L (136-145); UREA NITROGEN, BLOOD 53 mg/dL (8-21)
[2023-08-22 06:45] LABS: RED BLOOD CELL COUNT(AUTO) 1.98 MIL/uL (4.2-6.2)
[2023-08-22 06:47] LABS: HEMATOCRIT 19.1 % (36-54); HEMOGLOBIN 6.2 g/dL (14.0-18.0)
[2023-08-22 09:06] LABS: HEMATOCRIT 22.8 % (36-54); HEMOGLOBIN 7.1 g/dL (14.0-18.0)
[2023-08-22] MEDS: DIPHENHYDRAMINE HCL 50 MG CAPSULE PO PRN ×2 (09:16→21:36)
[2023-08-22] MEDS: PANTOPRAZOLE SODIUM 40 MG TAB PO SCH ×2 (09:16→12:41)
[2023-08-22] MEDS: cefTRIAXone 1 GM IVPB PREMIX 50 ML IV SCH ×2 (09:18→12:28)
[2023-08-22] MEDS: ALBUMIN HUMAN 25% 100 ML IV SCH ×2 (17:03→22:56)
[2023-08-22 19:19] LABS: BASOPHILS % (AUTO) 0.1 % (0.0-2.0); EOSINOPHILS # (AUTO) 1.3 K/uL (0.0-0.4); EOSINOPHILS % (AUTO) 14.1 % (0.0-4.0); HEMOGLOBIN 7.4 g/dL (14.0-18.0); LYMPHOCYTES # (AUTO) 1.8 K/uL (1.0-5.5); LYMPHOCYTES % (AUTO) 19.6 % (20.5-51.5); MEAN CORPUSCULAR HEMOGLOBIN 31 pg (27-31); MEAN CORPUSCULAR HGB CONC 32 % (32-36); MEAN CORPUSCULAR VOLUME 95 fL (79.0-98.0); MONOCYTES # (AUTO) 0.5 K/uL (0.0-1.0); MONOCYTES % (AUTO) 5.1 % (1.7-9.3); NEUTROPHILS # (AUTO) 5.7 K/uL (1.8-7.7); NEUTROPHILS % (AUTO) 61.1 % (40.0-70.0); PLATELET COUNT (AUTO) 192 K/uL (130-430); RED BLOOD CELL COUNT(AUTO) 2.42 MIL/uL (4.2-6.2); WHITE BLOOD COUNT (AUTO) 9.4 K/uL (4.8-10.8)
[2023-08-22] MEDS: traZODone HCL 50 MG TABLET (DESYREL) PO PRN (21:36)
[2023-08-22] MEDS: HYDROcodone/ACETAMIN 5-325 MG TAB (NORCO/ VICODIN) PO PRN (21:37)
[2023-08-23 01:37] VITALS: BP_SYST 120; PULSE 90; RESP 17; TEMP 98.4; O2SAT 96
[2023-08-23] MEDS: LORazepam 2 MG/ML VIAL IVP PRN (02:19)
[2023-08-23] MEDS: ALBUMIN HUMAN 25% 100 ML IV SCH (05:31)
[2023-08-23] MEDS: D5/0.45 NS 1,000 ML IV SCH ×3 (07:02→21:29)
[2023-08-23 08:36] VITALS: BP_SYST 125; PULSE 101; RESP 18; TEMP 98.4; O2SAT 94
[2023-08-23 20:00] VITALS: BP_SYST 135; PULSE 92; RESP 20; TEMP 98.5; O2SAT 95
[2023-08-23] MEDS: traZODone HCL 50 MG TABLET (DESYREL) PO PRN (21:29)
[2023-08-23 22:00] VITALS: O2SAT 95
[2023-08-23] MEDS ORDERED: DIPHENHYDRAMINE INJ 50 MG/ML VIAL ONE (22:44)
[2023-08-23] MEDS ORDERED: DIPHENHYDRAMINE INJ 50 MG/ML VIAL IVP ONE (22:45)
[2023-08-24 02:11] VITALS: BP_SYST 137; PULSE 70; RESP 18; TEMP 97.8; O2SAT 95
[2023-08-24 07:52] VITALS: BP_SYST 121; PULSE 80; RESP 14; TEMP 96.4; O2SAT 98
[2023-08-24 08:00] VITALS: O2SAT 98
[2023-08-24] MEDS: D5/0.45 NS 1,000 ML IV SCH ×2 (09:30→17:31)
[2023-08-24] MEDS: PANTOPRAZOLE SODIUM 40 MG TAB PO SCH (09:36)
[2023-08-24] MEDS: HYDROcodone/ACETAMIN 5-325 MG TAB (NORCO/ VICODIN) PO PRN (09:36)
[2023-08-24] MEDS: cefTRIAXone 1 GM IVPB PREMIX 50 ML IV SCH (10:00)
[2023-08-24 10:18] LABS: BASOPHILS % (AUTO) 0.2 % (0.0-2.0); EOSINOPHILS # (AUTO) 0.9 K/uL (0.0-0.4); EOSINOPHILS % (AUTO) 8.8 % (0.0-4.0); HEMATOCRIT 25.6 % (36-54); HEMOGLOBIN 8.5 g/dL (14.0-18.0); LYMPHOCYTES # (AUTO) 2.2 K/uL (1.0-5.5); LYMPHOCYTES % (AUTO) 21.3 % (20.5-51.5); MEAN CORPUSCULAR HEMOGLOBIN 32 pg (27-31); MEAN CORPUSCULAR HGB CONC 33 % (32-36); MEAN CORPUSCULAR VOLUME 95 fL (79.0-98.0); MONOCYTES # (AUTO) 0.7 K/uL (0.0-1.0); MONOCYTES % (AUTO) 6.4 % (1.7-9.3); NEUTROPHILS # (AUTO) 6.7 K/uL (1.8-7.7); NEUTROPHILS % (AUTO) 63.3 % (40.0-70.0); PLATELET COUNT (AUTO) 242 K/uL (130-430); RED BLOOD CELL COUNT(AUTO) 2.69 MIL/uL (4.2-6.2); RED CELL DISTRIBUTION WIDTH 14.3 % (9.0-15.0); WHITE BLOOD COUNT (AUTO) 10.6 K/uL (4.8-10.8)
[2023-08-24 10:31] LABS: ANION GAP 18 (5-15); CALCIUM 8.7 mg/dL (8.4-11.0); CARBON DIOXIDE 15 mmol/L (23-29); CHLORIDE 112 mmol/L (98-107); CREATININE 1.99 mg/dL (0.55-1.30); GLUCOSE 113 mg/dL (74-106); POTASSIUM 3.8 mmol/L (3.5-5.1); SODIUM SERUM 145 mmol/L (136-145); UREA NITROGEN, BLOOD 33 mg/dL (8-21)
[2023-08-24 10:34] LABS: TOTAL IRON BIND. CAPACITY 129 ug/dL (250-450)
[2023-08-24 11:05] VITALS: BP_SYST 141; PULSE 97; RESP 15; TEMP 97.7; O2SAT 93
[2023-08-24 15:56] VITALS: BP_SYST 135; PULSE 48; RESP 16; TEMP 96.1; O2SAT 93
[2023-08-24] MEDS ORDERED: MILK OF MAGNESIA 30 ML UDC PO PRN (17:30)
[2023-08-24 20:00] VITALS: BP_SYST 113; PULSE 74; RESP 18; TEMP 98.5; O2SAT 98
[2023-08-25 01:23] VITALS: BP_SYST 136; PULSE 107; RESP 16; TEMP 97.3; O2SAT 98
[2023-08-25] MEDS: D5/0.45 NS 1,000 ML IV SCH ×2 (07:22→19:32)
[2023-08-25 08:00] VITALS: O2SAT 96
[2023-08-25 08:12] LABS: BASOPHILS % (AUTO) 0.3 % (0.0-2.0); EOSINOPHILS # (AUTO) 0.8 K/uL (0.0-0.4); EOSINOPHILS % (AUTO) 8.5 % (0.0-4.0); HEMOGLOBIN 7.9 g/dL (14.0-18.0); LYMPHOCYTES # (AUTO) 1.9 K/uL (1.0-5.5); MEAN CORPUSCULAR HEMOGLOBIN 31 pg (27-31); MEAN CORPUSCULAR HGB CONC 33 % (32-36); MEAN CORPUSCULAR VOLUME 95 fL (79.0-98.0); MONOCYTES # (AUTO) 0.7 K/uL (0.0-1.0); MONOCYTES % (AUTO) 7.9 % (1.7-9.3); NEUTROPHILS % (AUTO) 63.3 % (40.0-70.0); PLATELET COUNT (AUTO) 255 K/uL (130-430); RED BLOOD CELL COUNT(AUTO) 2.52 MIL/uL (4.2-6.2); RED CELL DISTRIBUTION WIDTH 14.5 % (9.0-15.0); WHITE BLOOD COUNT (AUTO) 9.5 K/uL (4.8-10.8)
[2023-08-25 08:18] LABS: ANION GAP 15 (5-15); CALCIUM 8.6 mg/dL (8.4-11.0); CARBON DIOXIDE 17 mmol/L (23-29); CHLORIDE 109 mmol/L (98-107); CREATININE 1.92 mg/dL (0.55-1.30); GLUCOSE 101 mg/dL (74-106); POTASSIUM 3.7 mmol/L (3.5-5.1); SODIUM SERUM 141 mmol/L (136-145); UREA NITROGEN, BLOOD 33 mg/dL (8-21)
[2023-08-25 08:42] VITALS: BP_SYST 123; PULSE 94; RESP 18; TEMP 97.3
[2023-08-25] MEDS: PANTOPRAZOLE SODIUM 40 MG TAB PO SCH (10:55)
[2023-08-25] MEDS: cefTRIAXone 1 GM IVPB PREMIX 50 ML IV SCH (10:55)
[2023-08-25 19:00] VITALS: O2SAT 95
[2023-08-25 20:00] VITALS: BP_SYST 132; PULSE 94; RESP 18; TEMP 97; O2SAT 95
[2023-08-25] MEDS: FERROUS SULFATE 142 MG TABLET.ER PO SCH (22:16)
[2023-08-25] MEDS: traZODone HCL 50 MG TABLET (DESYREL) PO PRN (22:17)
[2023-08-25] MEDS: HYDROcodone/ACETAMIN 5-325 MG TAB (NORCO/ VICODIN) PO PRN (22:17)
[2023-08-26 00:16] VITALS: BP_SYST 114; PULSE 75; RESP 15; TEMP 96.8; O2SAT 99
[2023-08-26 08:13] VITALS: BP_SYST 102; PULSE 75; RESP 18; TEMP 97.2; O2SAT 98
[2023-08-26] MEDS: D5/0.45 NS 1,000 ML IV SCH ×2 (09:04→22:12)
[2023-08-26] MEDS: PANTOPRAZOLE SODIUM 40 MG TAB PO SCH (09:04)
[2023-08-26] MEDS: FERROUS SULFATE 142 MG TABLET.ER PO SCH ×2 (09:37→23:35)
[2023-08-26] MEDS: cefTRIAXone 1 GM IVPB PREMIX 50 ML IV SCH (10:17)
[2023-08-26 11:34] VITALS: O2SAT 96
[2023-08-26 11:48] LABS: BASOPHILS # (AUTO) 0.1 K/uL (0.0-0.2); BASOPHILS % (AUTO) 0.6 % (0.0-2.0); HEMATOCRIT 22.4 % (36-54); HEMOGLOBIN 7.3 g/dL (14.0-18.0); LYMPHOCYTES # (AUTO) 1.8 K/uL (1.0-5.5); LYMPHOCYTES % (AUTO) 21.7 % (20.5-51.5); MEAN CORPUSCULAR HEMOGLOBIN 31 pg (27-31); MEAN CORPUSCULAR HGB CONC 33 % (32-36); MEAN CORPUSCULAR VOLUME 95 fL (79.0-98.0); MONOCYTES # (AUTO) 0.8 K/uL (0.0-1.0); NEUTROPHILS # (AUTO) 4.8 K/uL (1.8-7.7); NEUTROPHILS % (AUTO) 56.7 % (40.0-70.0); PLATELET COUNT (AUTO) 257 K/uL (130-430); RED BLOOD CELL COUNT(AUTO) 2.36 MIL/uL (4.2-6.2); RED CELL DISTRIBUTION WIDTH 14.6 % (9.0-15.0); WHITE BLOOD COUNT (AUTO) 8.5 K/uL (4.8-10.8)
[2023-08-26 12:00] VITALS: BP_SYST 98; PULSE 76; RESP 18; TEMP 98.1; O2SAT 98
[2023-08-26 12:06] LABS: ALANINE AMINOTRANSFERASE 11 U/L (12-78); ALBUMIN 2.7 g/dL (3.4-4.8); ANION GAP 14 (5-15); ASPARTATE AMINOTRANSFERASE 14 U/L (10-37); CALCIUM 7.5 mg/dL (8.4-11.0); CARBON DIOXIDE 18 mmol/L (23-29); CHLORIDE 112 mmol/L (98-107); CREATININE 1.74 mg/dL (0.55-1.30); GLUCOSE 128 mg/dL (74-106); POTASSIUM 4.2 mmol/L (3.5-5.1); SODIUM SERUM 144 mmol/L (136-145); TOTAL BILIRUBIN 0.2 mg/dL (0.0-1.0); TOTAL PROTEIN, SERUM 5.3 g/dL (6.4-8.3); UREA NITROGEN, BLOOD 26 mg/dL (8-21)
[2023-08-26] MEDS ORDERED: IRON DEXTRAN COMPLEX 25 MG in NS 50 ML TEST DOSE IV ONE (13:30)
[2023-08-26] MEDS ORDERED: IRON DEXTRAN COMPLEX 75 MG in NS 100 ML IV ONE (15:00)
[2023-08-26 16:00] VITALS: BP_SYST 116; PULSE 83; RESP 18; TEMP 98.4; O2SAT 98
[2023-08-26 20:00] VITALS: BP_SYST 127; PULSE 95; RESP 18; TEMP 98.1; O2SAT 97; O2SAT 98
[2023-08-26] MEDS: DIPHENHYDRAMINE HCL 50 MG CAPSULE PO PRN (23:35)
[2023-08-26] MEDS: traZODone HCL 50 MG TABLET (DESYREL) PO PRN (23:35)
[2023-08-27] VITALS (7 sets, daily range): BP systolic 125–148; PULSE 87–92; RESP 17–18; TEMP 97.7–98.2; O2SAT 96–98
[2023-08-27 08:03] LABS: BASOPHILS % (AUTO) 0.1 % (0.0-2.0); EOSINOPHILS % (AUTO) 10.5 % (0.0-4.0); HEMATOCRIT 24.1 % (36-54); HEMOGLOBIN 7.8 g/dL (14.0-18.0); LYMPHOCYTES % (AUTO) 21.7 % (20.5-51.5); MEAN CORPUSCULAR HEMOGLOBIN 31 pg (27-31); MEAN CORPUSCULAR HGB CONC 32 % (32-36); MEAN CORPUSCULAR VOLUME 95 fL (79.0-98.0); MONOCYTES # (AUTO) 0.9 K/uL (0.0-1.0); MONOCYTES % (AUTO) 9.2 % (1.7-9.3); NEUTROPHILS # (AUTO) 5.5 K/uL (1.8-7.7); NEUTROPHILS % (AUTO) 58.5 % (40.0-70.0); PLATELET COUNT (AUTO) 286 K/uL (130-430); RED BLOOD CELL COUNT(AUTO) 2.53 MIL/uL (4.2-6.2); RED CELL DISTRIBUTION WIDTH 14.4 % (9.0-15.0); WHITE BLOOD COUNT (AUTO) 9.4 K/uL (4.8-10.8)
[2023-08-27 08:12] LABS: ALANINE AMINOTRANSFERASE 12 U/L (12-78); ALBUMIN 3.1 g/dL (3.4-4.8); ANION GAP 15 (5-15); ASPARTATE AMINOTRANSFERASE 11 U/L (10-37); CALCIUM 8.7 mg/dL (8.4-11.0); CARBON DIOXIDE 16 mmol/L (23-29); CHLORIDE 110 mmol/L (98-107); CREATININE 1.58 mg/dL (0.55-1.30); GLUCOSE 121 mg/dL (74-106); SODIUM SERUM 141 mmol/L (136-145); TOTAL BILIRUBIN 0.3 mg/dL (0.0-1.0); TOTAL PROTEIN, SERUM 5.5 g/dL (6.4-8.3); UREA NITROGEN, BLOOD 22 mg/dL (8-21)
[2023-08-27 08:25] LABS: INR 1.1 (0.80-1.20); PROTHROMBIN TIME 11.7 SECS (9.5-12.5)
[2023-08-27] MEDS: FERROUS SULFATE 142 MG TABLET.ER PO SCH ×2 (09:00→21:46)
[2023-08-27] MEDS: cefTRIAXone 1 GM IVPB PREMIX 50 ML IV SCH (10:20)
[2023-08-27] MEDS: PANTOPRAZOLE SODIUM 40 MG TAB PO SCH (10:21)
[2023-08-27] MEDS: SODIUM BICARBONATE 8.4% JECT 150 MEQ in D5W 1,000 ML IVP SCH (12:15)
[2023-08-27] MEDS: IRON DEXTRAN COMPLEX 100 MG in NS 100 ML IV SCH (14:30)
[2023-08-27] MEDS ORDERED: MIDAZOLAM HCL 5 MG/5 ML VIAL ONE (14:41)
[2023-08-27] MEDS ORDERED: fentaNYL CITRATE/PF 100 MCG/2 ML AMP ONE (14:41)
[2023-08-27] MEDS ORDERED: FLUCONAZOLE 200 MG TABLET (DIFLUCAN) PO ONE (17:15)
[2023-08-28 00:09] VITALS: BP_SYST 152; PULSE 95; RESP 18; TEMP 97.2; O2SAT 94
[2023-08-28] MEDS: SODIUM BICARBONATE 8.4% JECT 150 MEQ in D5W 1,000 ML IVP SCH (04:41)
[2023-08-28 08:00] VITALS: BP_SYST 124; PULSE 84; RESP 20; TEMP 97.2; O2SAT 91
[2023-08-28 08:10] VITALS: O2SAT 91
[2023-08-28 08:14] LABS: BASOPHILS % (AUTO) 0.4 % (0.0-2.0); EOSINOPHILS # (AUTO) 0.4 K/uL (0.0-0.4); EOSINOPHILS % (AUTO) 6.3 % (0.0-4.0); HEMATOCRIT 24.3 % (36-54); HEMOGLOBIN 7.8 g/dL (14.0-18.0); LYMPHOCYTES # (AUTO) 1.5 K/uL (1.0-5.5); LYMPHOCYTES % (AUTO) 21.3 % (20.5-51.5); MEAN CORPUSCULAR HEMOGLOBIN 30 pg (27-31); MEAN CORPUSCULAR HGB CONC 32 % (32-36); MEAN CORPUSCULAR VOLUME 94 fL (79.0-98.0); MONOCYTES # (AUTO) 0.8 K/uL (0.0-1.0); MONOCYTES % (AUTO) 11.3 % (1.7-9.3); NEUTROPHILS # (AUTO) 4.2 K/uL (1.8-7.7); NEUTROPHILS % (AUTO) 60.7 % (40.0-70.0); PLATELET COUNT (AUTO) 284 K/uL (130-430); RED BLOOD CELL COUNT(AUTO) 2.59 MIL/uL (4.2-6.2); RED CELL DISTRIBUTION WIDTH 14.6 % (9.0-15.0); WHITE BLOOD COUNT (AUTO) 6.9 K/uL (4.8-10.8)
[2023-08-28] MEDS ORDERED: FLUCONAZOLE 200 MG TABLET (DIFLUCAN) PO SCH (09:00)
[2023-08-28 09:05] LABS: ALANINE AMINOTRANSFERASE 14 U/L (12-78); ALBUMIN 3.1 g/dL (3.4-4.8); ANION GAP 15 (5-15); ASPARTATE AMINOTRANSFERASE 14 U/L (10-37); CALCIUM 8.1 mg/dL (8.4-11.0); CARBON DIOXIDE 19 mmol/L (23-29); CHLORIDE 105 mmol/L (98-107); GLUCOSE 114 mg/dL (74-106); POTASSIUM 3.6 mmol/L (3.5-5.1); SODIUM SERUM 139 mmol/L (136-145); TOTAL BILIRUBIN 0.4 mg/dL (0.0-1.0); TOTAL PROTEIN, SERUM 5.8 g/dL (6.4-8.3); UREA NITROGEN, BLOOD 25 mg/dL (8-21)
[2023-08-28] MEDS: PANTOPRAZOLE SODIUM 40 MG TAB PO SCH (11:07)
[2023-08-28] MEDS: FERROUS SULFATE 142 MG TABLET.ER PO SCH (11:09)
[2023-08-28 11:11] VITALS: BP_SYST 140; PULSE 51; RESP 16; TEMP 97.7; O2SAT 96
[2023-08-28 14:39] VITALS: BP_SYST 140; PULSE 51; RESP 16; TEMP 97.7; O2SAT 96
[2023-08-28] MEDS: IRON DEXTRAN COMPLEX 100 MG in NS 100 ML IV SCH (15:00)
[2023-08-28 16:00] VITALS: BP_SYST 145; PULSE 83; RESP 16; TEMP 97.9; O2SAT 97
[2023-08-28] MEDS ORDERED: PRO40 PO (16:36)
== END 2023-08-28 17:30 | DRG 377 ==
LOC: SED 11:03 → SMU 13:26 → STU 08-21 19:53 → SMU 08-24 03:02
PROVIDERS: ADMIT Preventive Medicine Preventive Medicine/Occupational Environmental Medicine; ATTEND Specialist
PROC: 0HQFXZZ Repair Right Hand Skin, External Approach (ICD-10-PCS; 2023-08-19)
PROC: 4A00X4Z Measurement of Central Nervous Electrical Activity, External Approach (ICD-10-PCS; principal; 2023-08-20)
PROC: 30233N1 Transfusion of Nonautologous Red Blood Cells into Peripheral Vein, Percutaneous Approach (ICD-10-PCS; 2023-08-21)
PROC: 0DB78ZX Excision of Stomach, Pylorus, Via Natural or Artificial Opening Endoscopic, Diagnostic (ICD-10-PCS; 2023-08-27)
DX: K29.71 Gastritis, unspecified, with bleeding (principal); E43 Unspecified severe protein-calorie malnutrition; J18.9 Pneumonia, unspecified organism; R65.11 Systemic inflammatory response syndrome (SIRS) of non-infectious origin with acute organ dysfunction; N17.9 Acute kidney failure, unspecified; S22.42XA Multiple fractures of ribs, left side, initial encounter for closed fracture; E87.0 Hyperosmolality and hypernatremia; K29.81 Duodenitis with bleeding; S61.411A Laceration without foreign body of right hand, initial encounter; W18.30XA Fall on same level, unspecified, initial encounter; M47.812 Spondylosis without myelopathy or radiculopathy, cervical region; M10.9 Gout, unspecified; D64.9 Anemia, unspecified; E87.8 Other disorders of electrolyte and fluid balance, not elsewhere classified; S09.90XA Unspecified injury of head, initial encounter; S01.112A Laceration without foreign body of left eyelid and periocular area, initial encounter; W18.39XA Other fall on same level, initial encounter; I12.9 Hypertensive chronic kidney disease with stage 1 through stage 4 chronic kidney disease, or unspecified chronic kidney disease; N18.9 Chronic kidney disease, unspecified; Y93.89 Activity, other specified; Y92.89 Other specified places as the place of occurrence of the external cause; Y99.8 Other external cause status; Z68.23 Body mass index [BMI] 23.0-23.9, adult; T39.395A Adverse effect of other nonsteroidal anti-inflammatory drugs [NSAID], initial encounter
CPT/HCPCS: 36415; 43239; 70450-TC; 70551; 71045; 72125-TC; 73030; 76376; 76770; 80048; 80053; 80076; 81000; 81001; 81015; 82272; 82550; 83540; 83550; 83735; 84100; 85018; 85025; 85610; 85730; 86886; 86900; 86901; 86920; 87040; 87086; 88160; 88305; 88312; 88313; 90715; 93005; 95816; 97110-GP; 97116-GP; 97530-GP; 99285; G0378; J0696; J1200; J1644; J1750; J2060; J2250; J3010; J3480; J7050; J7060; P9021; P9046; Q0163; Q5106

== ENCOUNTER 2023-12-09 00:10 | Emergency (ER) | payer BC ==
[~2023-12-09] VITALS: Ht 167.6 cm; Wt 59.0 kg
[~2023-12-09 00:10] MED LIST changes: -CEPH250C PO; -CLIN-22 PO; -DICL20GE TP; -DOXY100C5 PO; -IBUP-1969 PO; +PRO40 PO
[2023-12-09 00:20] VITALS: BP_SYST 99; PULSE 74; RESP 16; TEMP 97; O2SAT 92
[2023-12-09 01:09] LABS: BILIRUBIN,URINE NEGATIVE (NEGATIVE); CLARITY/URINE CLOUDY (CLEAR); COLOR,URINE YELLOW (YELLOW); GLUCOSE,URINE 2+ (NEGATIVE); KETONES,URINE NEGATIVE (NEGATIVE); LEUKOCYTE ESTERASE ,URINE 2+ (NEGATIVE); NITRITE, URINE NEGATIVE (NEGATIVE); PROTEIN URINE TRACE (NEGATIVE); UROBILINOGEN,URINE 0.2 (0.2-1.0)
[2023-12-09 01:18] LABS: BLOOD, URINE TRACE (NEGATIVE)
[2023-12-09 01:20] LABS: BACTERIA,URINE FEW /HPF (None Seen); RBC,URINE 0-3 /HPF (0-3); WBC,URINE >100 /HPF (0-3)
[2023-12-09 01:27] LABS: BARBITURATE, URINE NEGATIVE (NEG <=200); BENZODIAZEPINE, URINE POSITIVE (NEG <=150); CANNABINOID, URINE NEGATIVE (NEG <=50); COCAINE, URINE NEGATIVE (NEG <=150); METHAMPHETAMINES SCREEN,URINE NEGATIVE (NEG <=500); OPIATE, URINE NEGATIVE (NEG <=100); PHENCYCLIDINE SCREEN,URINE NEGATIVE (NEG <=25); UR TRICYCLIC ANTIDEPRESSANTS POSITIVE (NEG <=300); URINE AMPHETAMINE NEGATIVE (NEG <=500); URINE METHADONE NEGATIVE (NEG <=200); URINE OXYCODONE SCREEN NEGATIVE (NEG <=100)
[2023-12-09 01:44] LABS: BASOPHILS % (AUTO) 0.4 % (0.0-2.0); EOSINOPHILS # (AUTO) 1.2 K/uL (0.0-0.4); EOSINOPHILS % (AUTO) 13.3 % (0.0-4.0); HEMATOCRIT 30.2 % (36-54); HEMOGLOBIN 9.8 g/dL (14.0-18.0); LYMPHOCYTES % (AUTO) 11.1 % (20.5-51.5); MEAN CORPUSCULAR HEMOGLOBIN 27 pg (27-31); MEAN CORPUSCULAR HGB CONC 33 % (32-36); MEAN CORPUSCULAR VOLUME 82 fL (79.0-98.0); MONOCYTES # (AUTO) 0.6 K/uL (0.0-1.0); MONOCYTES % (AUTO) 6.5 % (1.7-9.3); NEUTROPHILS # (AUTO) 6.3 K/uL (1.8-7.7); NEUTROPHILS % (AUTO) 68.7 % (40.0-70.0); PLATELET COUNT (AUTO) 181 K/uL (130-430); RED BLOOD CELL COUNT(AUTO) 3.67 MIL/uL (4.2-6.2); WHITE BLOOD COUNT (AUTO) 9.1 K/uL (4.8-10.8)
[2023-12-09 01:47] LABS: ANION GAP 11 (5-15); CALCIUM 8.1 mg/dL (8.4-11.0); CARBON DIOXIDE 22 mmol/L (23-29); CHLORIDE 108 mmol/L (98-107); CREATININE 1.79 mg/dL (0.55-1.30); GLUCOSE 113 mg/dL (74-106); POTASSIUM 4.5 mmol/L (3.5-5.1); SODIUM SERUM 141 mmol/L (136-145); UREA NITROGEN, BLOOD 28 mg/dL (8-21)
[2023-12-09 01:53] LABS: CHOLESTEROL 77 mg/dL (<200); HDL CHOLESTEROL 38 mg/dL (>45); SALICYLATE < 1 mg/dL (3-30); TRIGLYCERIDES 43 mg/dL (30-150)
[2023-12-09 01:55] LABS: ACETAMINOPHEN < 1 ug/mL (1-30)
[2023-12-09 01:56] LABS: ALCOHOL, BLOOD < 3 mg/dL (<10)
[2023-12-09] MEDS: NACL 0.9% 1,000 ML IV ONE (02:14)
[2023-12-09] MEDS: DIPHTH,PERTUSS(ACELL),TET VAC 0.5 ML VIAL (Tdap) I.M. ONE (02:14)
[2023-12-09 02:25] LABS: HEMOGLOBIN A1C 5.38 % (<5.7)
[2023-12-09] MEDS ORDERED: EMPA1TAB PO (10:59)
[2023-12-09] MEDS ORDERED: ATOR40TA68 PO (10:59)
[2023-12-09] MEDS ORDERED: QUET25TA36 PO (10:59)
[2023-12-09] MEDS ORDERED: PANT40TA45 PO (10:59)
[2023-12-09] MEDS ORDERED: HYDR10SY16 PO (11:00)
[2023-12-09] MEDS ORDERED: METO-442 PO (11:00)
[2023-12-09 13:51] VITALS: BP_SYST 141; PULSE 69; RESP 16; TEMP 97.8; O2SAT 98
== END 2023-12-09 13:50 ==
LOC: SED 00:10
DX: S41.111A Laceration without foreign body of right upper arm, initial encounter (principal); Z79.899 Other long term (current) drug therapy; Z20.822 Contact with and (suspected) exposure to COVID-19; W26.0XXA Contact with knife, initial encounter; Y93.89 Activity, other specified; Y92.89 Other specified places as the place of occurrence of the external cause; Y99.8 Other external cause status
CPT/HCPCS: 99285; 96360; 87426; 80061; 80307; 80048; 83037; 85025; 87086; 36415; 90715; 90471; 81000; 81001; 87081; 81015; J7030; G0480; G0481; G0482